=== PATIENT | male | born 1940 ===

== ENCOUNTER → 2016-05-27 | Outpatient (CLI) | payer MEDICARE, BC ==
[~2016-05-27] MED LIST: ASPIRIN EC81 MG ORAL; ENALAPRIL MALEAT5 MG PO; FORTAMET1000 MG PO; LIPITOR20 MG PO; LOW DOSE ASPIRI81 MG PO; MULTIVITAMINS1 EAC8 PO
[2016-05-27 09:21] VITALS: BP 115/62
--- NOTE | 2016-05-27 10:39 | General Progress Note ---
Assessment/Plan Problem List: (1) DM (diabetes mellitus) ICD Codes: E11.9 - Type 2 diabetes mellitus without complications SNOMED: 22823224 (2) HTN (hypertension) ICD Codes: I10 - Essential (primary) hypertension SNOMED: 55251177 (3) BPH (benign prostatic hyperplasia) ICD Codes: N40.0 - Benign prostatic hyperplasia without lower urinary tract symptoms SNOMED: 389534123, 028054609 (4) Colon polyps ICD Codes: K63.5 - Polyp of colon SNOMED: 73123677 Assessment/Plan check labs increase metformin to 2.5 gm per day refill meds add hytrin patient needs another colonoscopy but wants to wait Subjective ROS Limited/Unobtainable: Yes Allergies: Coded Allergies: No Known Allergies (Unverified , 04/12/12) Objective Last 24 Hour Vital Signs Date Time Temp Pulse Resp B/P Pulse Ox O2 Delivery O2 Flow Rate FiO2 05/27/16 09:21 98.4 56 18 115/62 98 General Appearance: alert EENT: normal ENT inspection Neck: supple Cardiovascular: normal rate Respiratory/Chest: lungs clear Abdomen: normal bowel sounds, non tender, soft Extremities: non-tender ANY SIMPSON May 27, 2016 10:39
[2016-05-27 12:26] LABS: BASOPHILS % (AUTO) 1.8 % (0.0-2.0); EOSINOPHILS % (AUTO) 1.2 % (0.0-3.0); LYMPHOCYTES % (AUTO) 32.7 % (20.0-45.0); MEAN CORPUSCULAR HEMOGLOBIN 31.8 PG (27.0-31.0); MEAN CORPUSCULAR HGB CONC 31.7 G/DL (32.0-36.0); MEAN CORPUSCULAR VOLUME 100 FL (80-99); MEAN PLATELET VOLUME 12.2 FL (6.5-10.1); MONOCYTES % (AUTO) 7.3 % (1.0-10.0); NEUTROPHILS % (AUTO) 57.1 % (45.0-75.0); PLATELET COUNT 165 K/UL (150-450); RED BLOOD COUNT 4.32 M/UL (4.70-6.10); RED CELL DISTRIBUTION WIDTH 12.7 % (11.6-14.8); WHITE BLOOD COUNT 5.4 K/UL (4.8-10.8)
[2016-05-27 12:29] LABS: APPEARANCE,URINE CLEAR; KETONES,URINE NEGATIVE (NEGATIVE); LEUKOCYTE ESTERASE ,URINE 1+ (NEGATIVE); NITRITE,URINE NEGATIVE (NEGATIVE); PH,URINE 5 (4.5-8.0); PROTEIN,URINE NEGATIVE (NEGATIVE); UROBILINOGEN,URINE NORMAL MG/DL (0.0-1.0)
[2016-05-27 12:37] LABS: SQUAMOUS EPITHELIAL CELL,UR OCCASIONAL /LPF (NONE/OCC); WBC,URINE 0-2 /HPF (0 - 0)
[2016-05-27 12:38] LABS: BACTERIA,URINE FEW /HPF
[2016-05-27 12:43] LABS: HEMOGLOBIN A1C 6.2 % (< 6.0)
[2016-05-27 12:59] LABS: ALANINE AMINOTRANSFERASE 14 U/L (3-41); ALBUMIN/GLOBULIN RATIO 1.6 (1.0-2.7); ANION GAP 12 (5-15); ASPARTATE AMINO TRANSFERASE 22 U/L (5-40); CALCIUM 9.7 mg/dL (8.6-10.2); CARBON DIOXIDE 28 mEQ/L (20-30); CHLORIDE 100 mEQ/L (98-107); CHOLESTEROL 140 mg/dL (< 200); CHOLESTEROL/HDL RATIO 2.4 (3.3-4.4); CREATININE 1.5 mg/dL (0.7-1.2); HEMOLYSIS 3; LDL CHOLESTEROL (CALC.) 70 mg/dL (60-99); POTASSIUM 4.8 mEQ/L (3.4-4.9); SODIUM 140 mEQ/L (135-145); TOTAL PROTEIN 7.5 g/dL (6.6-8.7)
== END | disposition home or self-care (01) ==
LOC: PAN 09:02
DX: K63.5 Polyp of colon (principal); E11.9 Type 2 diabetes mellitus without complications; I10 Essential (primary) hypertension; N40.0 Benign prostatic hyperplasia without lower urinary tract symptoms
CPT/HCPCS: 36415; 80053; 80061; 81003; 83036; 84153; 85025; G0463; 99201